=== PATIENT | male | born 1955 | race Caucasian/White ===

== ENCOUNTER 2020-11-17 12:43 | Emergency (ER) | payer OTHER ==
[~2020-11-17] VITALS: Ht 152.4 cm; Wt 73.5 kg
[2020-11-17 12:54] VITALS: BP 130/64
[2020-11-17 12:56] VITALS: BP 130/64
--- NOTE | 2020-11-17 12:58 | NUR ---
64yo m c/o left arm pain x 4 days, left arm swelling x 2 days. pt denies trauma or injury to area but states that he lifts heavy materials at work. denies numbness and weakness. in ed, vss. 5/5 strength on all extremities. cap refill <4. pt positioned comfortably in bed with 2 siderails up. ermd made aware of patient status. pmh: none meds: none nka
[2020-11-17] MEDS ORDERED: KETOROLAC 60 MG/2 ML VIAL IM ONE (13:10)
[2020-11-17] MEDS ORDERED: METH750T5 PO (13:40)
[2020-11-17] MEDS ORDERED: NAPR-54 PO (13:40)
--- NOTE | 2020-11-17 14:03 | NUR ---
Patient discharged with v/s stable. Written and verbal after care instructions about muscle pain, muscle strain given and explained. Patient alert, oriented and verbalized understanding of instructions. Ambulatory with steady gait. All questions addressed prior to discharge. ID band removed. Patient advised to follow up with PMD. Rx of naprosyn, robaxin given. Patient educated on indication of medication including possible reaction and side effects. Opportunity to ask questions provided and answered.
== END 2020-11-17 14:03 | disposition home or self-care (01) ==
LOC: MED 12:43
DX: M79.601 Pain in right arm (principal); W22.8XXA Striking against or struck by other objects, initial encounter; Y93.89 Activity, other specified; Y92.89 Other specified places as the place of occurrence of the external cause; Y99.8 Other external cause status
CPT/HCPCS: 73080; 96372; 99283; J1885

== ENCOUNTER 2020-11-24 09:55 | Emergency (ER) | payer OTHER ==
[~2020-11-24] VITALS: Ht 165.1 cm; Wt 73.5 kg
[~2020-11-24 09:55] MED LIST: METH750T5 PO; NAPR-54 PO
[2020-11-24 09:58] VITALS: BP 136/68
[2020-11-24] MEDS ORDERED: ERYT5OIN58 OP (10:13)
[2020-11-24] MEDS ORDERED: DOXY100C9 PO (10:13)
[2020-11-24] MEDS ORDERED: DEXT15DR6 OP (10:13)
[2020-11-24] MEDS: KETOROLAC 15 MG/ML VIAL IM ONE (10:19)
[2020-11-24 10:27] VITALS: BP 136/68
== END 2020-11-24 10:28 | disposition home or self-care (01) ==
LOC: MED 09:55
DX: M25.521 Pain in right elbow (principal); H00.013 Hordeolum externum right eye, unspecified eyelid
CPT/HCPCS: 96372; 99283; J1885